=== PATIENT | female | born 1965 | race Caucasian/White ===

== ENCOUNTER 2024-11-10 11:12 | Outpatient (CLI) | payer BC, SELFPAY ==
[2024-11-10 11:27] LABS: Estimated Glomerular Filt Rate > 60
== END 2024-11-10 11:13 | disposition home or self-care (01) ==
PROVIDERS: PCP Family Medicine; Visit Provider Family Medicine
DX: R74.8 Abnormal levels of other serum enzymes (principal); Z90.49 Acquired absence of other specified parts of digestive tract
CPT/HCPCS: 74177; Q9967

== ENCOUNTER 2024-12-01 13:59 | Outpatient (CLI) | payer BC, SELFPAY ==
--- NOTE | ~2024-12-01 | XR_ITS ---
EXAMINATION: XR UGIAC w small bowel DATE: 12/01/2024 16:45 INDICATION: Epigastric pain TECHNIQUE: The patient drank thick barium, gas-producing crystals, and thin barium. Conventional supi ne abdomen radiographs and fluoroscopic spot radiographs of the esophagus, stomach, and proximal smal l bowel were obtained. Additional overhead radiographs were obtained during the transit through the s mall bowel. Spot fluoroscopic images of the small bowel were obtained upon contrast reaching the cec um. Fluoroscopy exposure time was 1.7 minutes. A total of 337 fluoroscopic images and 8 overhead radi ographs were obtained. COMPARISON: CT abdomen pelvis dated 11/10/2024 FINDINGS: The esophagus is normal without mass or stricture. Esophageal motility is normal. There is no hiatal hernia. There was no gastroesophageal reflux with provocative maneuvers. The stomach and proximal sma ll bowel are normal. Transit time from the stomach to proximal colon was approximately 2 hours. There is normal caliber an d mucosal fold pattern throughout the small bowel. Cholecystectomy clips in right upper quadrant. IMPRESSION: 1. Normal upper GI and small bowel follow-through studies. Reviewed, dictated and finalized at location A.
--- OUTSIDE RECORDS SUMMARY | 2024-12-01 14:20 | XMS_ITS ---
Author Organization [facility] Address [address] [place] [address] Care Team Providers Care Rail Washer Name Role Phone Karlee Burton Primary Care Provider [phone] Results Component Value Reference Range Notes CT Abdomen and Pelvis with c ontrast (24190) Reviewed date:11/20/2024 03:32:36 PM Interpretation: Performing Lab: Notes/Report: EBCT Coronary calcium score Reviewed date:11/20/2024 03:33:05 PM Interpretation: Performing Lab: Notes/Report: REASON FOR VISIT ER follow up for chest pains Medications Medication SIG (Take, Route, Frequency, Duration) Notes Start Date End Date Status Wellbutrin XL 300 MG 1 Oral every day; Duration: 0 01/22/2022 Active Benazepril HCl 20 MG 1.5 tablet Orally Once a day; Duration: 90 days Active Wellbutrin XL 150 MG 1 Oral every day; Duration: 0 01/22/2022 Active Pantoprazole Sodium 40 MG 1 tablet 1/2 to 1 hour before morning meal Orally Once a day; Duration: 30 days 10/25/2024 Active Vitamin D3 oral; Duration: 0 *Pick strength-form from [employer] for eRX* 01/22/2022 Not-Taking Nitroglycerin 0.4 MG 1 tablet under the tongue and allow to dissolve as needed. Take every 5 minutes up to 3 times if chest pain persists Sublingual Three times a day Active Vital Signs Temperature 97.1 degrees Fahrenheit 10/25/19 25 Blood pressure systolic 130 mm Hg 10/25/19 25 Blood pressure diastolic 96 mm Hg 025 Heart Rate 68 /min 10/25/2024 Respiratory Rate 18 /min 10/25/2024 Weight 157.4 lbs 10/25/2024 Oximetry 98 % 10/25/2024 Weight-kg 71.4 kg 10/25/2024 Encounters Encounter Location Date Provider Diagnosis [address] [address] 10/25/2024 [facility] Chest pain, unspecif ied type R07.9 ; Essential (primary) hypertension I10 ; Hx of cholecystectomy Z90.49 ; Elevated liver enzymes R74.8 ; Family history of heart disease Z82.49 and Epigastric abdominal pain R10.13 Assessments Encounter Date Diagnosis (ICD Code) Assessment Notes Treat ment Notes Treatment Clinical Notes 10/25/2024 Chest pain, unspecified type (ICD-10 - R07.9) ER paperwork reviewed. Trop negative CXR clear I suggest calling immediately with any changes, keep low fat diet for now. 10/25/2024 Essential (primary) hypertension (ICD-10 - I10) elevated a little today, which is not typical. 10/25/2024 Hx of cholecystectom y (ICD-10 - Z90.49) 10/25/2024 Elevated liver enzymes (ICD-10 - R74.8) 10/25/2024 Family history of heart disease (ICD-10 - Z82.49) 10/25/2024 Epigastric abdominal pain (ICD-10 - R10.13) 10/25/2024 Other Gastrointestinal Pain and Possible Sphincter of Oddi Dysfunction: - Episodes of severe epigastric pain possibly related to sphincter of Oddi dysfunction, especially after consuming fatty foods. Previous gallbladder removal may contribute to symptoms. Elevated liver enzymes noted. Differential diagnosis includes esophageal spasm, hiatal hernia, or functional GI tract issues. - Order a CT scan of the abdomen to assess anatomy. Consider a barium swallow test if CT is unrevealing. Possible MRCP or ERCP if further investigation is needed. Prescribe pantoprazole for acid reflux management. Recommend a low-fat diet. - Consider the use of a medication to thicken bile acids to prevent reflux and spasms if imaging is normal. - Evaluate for potential hiatal hernia or scar tissue from previous surgery as a cause of symptoms. Cardiac Evaluation: - Low suspicion of cardiac origin for symptoms, but family history of cardiac issues warrants evaluation. - Schedule a coronary CT scan to assess for calcium blockage and potential need for a stress test based on results. Plan Of Treatment Medication Medication Name Sig Start Date Stop Date Notes Pantoprazole Sodium 40 MG 1 tablet 1/2 t o 1 hour before morning meal Orally Once a day; Duration: 30 days 10/25/2024 Treatment Notes Assessment Notes Chest pain, unspecified type ER paperwork reviewed. Trop negative CXR clear I suggest calling immediately with any changes, keep low fat diet for now. Essential (primary) hypertension elevate d a little today, which is not typical. Other Gastrointestinal Pain and Possible Sphincter of Oddi Dysfunction: - Episodes of severe epigastric pain possibly related to sphincter of Oddi dysfunction, especially after consuming fatty foods. Previous gallbladder removal may contribute to symptoms. Elevated liver enzymes noted. Differential diagnosis includes esophageal spasm, hiatal hernia, or functional GI tract issues. - Order a CT scan of the abdomen to assess anatomy. Consider a barium swallow test if CT is unrevealing. Possible MRCP or ERCP if further investigation is needed. Prescribe pantoprazole for acid reflux management. Recommend a low-fat diet. - Consider the use of a medication to thicken bile acids to prevent reflux and spasms if imaging is normal. - Evaluate for potential hiatal hernia or scar tissue from previous surgery as a cause of symptoms. Cardiac Evaluation: - Low suspicion of cardiac origin for symptoms, but family history of cardiac issues warrants evaluation. - Schedule a coronary CT scan to assess for calcium blockage and potential need for a stress test based on results. History and Physical Notes * Examination Category Sub-Category Detail Notes General Examination General appearance: alert, p leasant, well-nourished and in no acute distress Head: normocephalic, atrau matic Eyes: both eyes, extraocul ar movement intact (EOMI), pupils equal, round, reactive to light and accommodation, conjunctiva clear Ears: both ears, normal, a uditory canal clear, tympanic membranes normal Nose: nares patent, no les ions Throat: clear, no erythema, no exudate, pharynx normal Neck / thyroid: neck is supple with no cervical lymphadenopathy, trachea midline Heart: regular rate and rhy thm without murmurs, gallops, clicks or rubs, S1 and S2 are normal and no S3 and S4 gallop Lungs: clear to auscultatio n bilaterally, with good air movement and no rales, rhonchi or wheezes Abdomen: soft with good bowel sounds, nontender, and no masses or hepatosplenomegaly Neurologic: alert and oriented, deep tendon reflexes 2+ symmetrical, gait normal Skin: skin is warm and dry , with no rashes, good skin turgor and normal hair distribution Extremities: normal extremity wit h no clubbing, cyanosis or edema Peripheral pulses: 2+ dorsalis pedis, 2 + posterior tibial, 2+ radial, 2+ carotid Back: normal, without kyph oscoliosis or tenderness Musculoskeletal: Normal bulk and tone in extremities Lymph nodes: no cervical lymphade nopathy Psych: alert and oriented x 3, cognitive function intact, maintains good eye contact, normal affect / mood, speech is clear and coherent Oral cavity: normal, mucosa moist , tongue is midline, Lips benign Progress Notes * Chantel ASHLEYOB:1965 ( 59 yo F)Acc No.[id number]:10/25/2024 Patient: Chase Aggarwal Provider: Ronen Burton MD :1965 A ge:59 Y S ex:Female Date:10/25/2024 Phone: Address[facility] Subjective: * Chief Complaints: * E R follow up for chest pains * HPI: C hest pain: Pt presents today for an ER f/u for chest pain. Pt was seen at [facility] on 10/18/24. She described the pain as being midsternal chest pains that were lasting several hours. Pt denies nausea, jaw or arm pain, and no SOB. Pt was given an xray of the chest. Thay xray was negative. Pt was diagnosed with esophageal spasm and gastro reflux. Pt had another episode wednesday evening that lasted about 30 minutes, not as severe as previous ones. 6/10 on pain scale. Pt has also noticed after she eats her chest feels funny. Pt has not been taking the 3 medications that were prescribed. Pt took one nitroglycerin Wednesday, said it did not help. - Balbir experienced severe gastric pain described as burning and squeezing, leading to dizziness and lightheadedness, prompting a visit to the ED. - Episodes similar to GERD have occurred before, but not treated consistently. - Recent episode included numbness and tingling in hands, which was new. - Pain onset after consuming coffee and a peanut butter [employer] bar. - History of EGD and cholecystectomy. - Liver enzymes were elevated in recent labs before the ED visit. - Relief sometimes achieved by self-induced vomiting or physical pressure on the abdomen. - Another episode occurred on Wednesday after eating chocolate, lasting about 30 minutes. - No consistent trigger identified; episodes can occur after consuming fatty foods like chocolate or peanut butter. - Previous scope on December 02, 2018, showed normal upper GI tract and normal colonoscopy with two small sigmoid polyps. * Medical History: Vitamin D deficiency, unspecified Vitamin D deficiency, unspecified Hyperlipidemia, unspecified Major depressive disorder, single episode, unspecified Essential (primary) hypertension Constipation, unspecified Asymptomatic menopausal state * Surgical History: abdominoplasty Cholecystectomy 10/12/2017 delivery 02/17/2016 * Medications: T akingNitroglycerin 0.4 MG Tablet Sublingual 1 tablet under the tongue and allow to dissolve as needed. Take every 5 minutes up to 3 times if chest pain persists Sublingual Three times a day Wellbutrin XL 150 MG Tablet Extended Release 24 Hour 1 Oral every day Wellbutrin XL 300 MG Tablet Extended Release 24 Hour 1 Oral every day Benazepril HCl 20 MG Tablet 1.5 tablet Orally Once a day Taking Nitroglycerin 0.4 MG Tablet Sublingual 1 tablet under the tongue and allow to dissolve as needed. Take every 5 minutes up to 3 times if chest pain persists Sublingual Three times a day Taking Wellbutrin XL 150 MG Tablet Extended Release 24 Hour 1 Oral every day Taking Wellbutrin XL 300 MG Tablet Extended Release 24 Hour 1 Oral every day Taking Benazepril HCl 20 MG Tablet 1.5 tablet Orally Once a day Not-TakingVitamin D3 oral , Notes to Pharmacist: *Pick strength-form from [employer] for eRX*Not-Taking Vitamin D3 oral , Notes to Pharmacist: *Pick strength-form from [employer] for eRX*DiscontinuedOmeprazole 40 MG Capsule Delayed Release 1 capsule 1/2 to 1 hour before morning meal Orally Once a day Medication List reviewed and reconciled with the patientDiscontinued Omeprazole 40 MG Capsule Delayed Release 1 capsule 1/2 to 1 hour before morning meal Orally Once a day Medication List reviewed and reconciled with the patient * Allergies: y esAllergies Verified. Objective: * Vitals: B P:130/96mm Hg, HR:68/min, RR:18/min, Temp:97.1F, Oxygen sat %:98%, Wt:157.4lbs, Wt-k.4 kg. * Examination: G eneral Examination: General appearance: a lert, pleasant, well-nourished and in no acute distress. Head: n ormocephalic, atraumatic. Eyes: b oth eyes, extraocular movement intact (EOMI), pupils equal, round, reactive to light and accommodation, conjunctiva clear. Ears: b oth ears, normal, auditory canal clear, tympanic membranes normal. Nose: n roselia patent, no lesions. Oral cavity: n ormal, mucosa moist, tongue is midline, Lips benign. Throat: c lear, no erythema, no exudate, pharynx normal.? Neck / thyroid: n james is supple with no cervical lymphadenopathy, trachea midline. Lymph nodes: n o cervical lymphadenopathy. Skin: s kin is warm and dry, with no rashes, good skin turgor and normal hair distribution. Heart: r egular rate and rhythm without murmurs, gallops, clicks or rubs, S1 and S2 are normal and no S3 and S4 gallop. Lungs: c lear to auscultation bilaterally, with good air movement and no rales, rhonchi or wheezes. Abdomen: s oft with good bowel sounds, nontender, and no masses or hepatosplenomegaly. Back: n ormal, without kyphoscoliosis or tenderness. Musculoskeletal: N ormal bulk and tone in extremities. Extremities: n ormal extremity with no clubbing, cyanosis or edema. Peripheral pulses: 2 + dorsalis pedis, 2+ posterior tibial, 2+ radial, 2+ carotid. Neurologic: a lert and oriented, deep tendon reflexes 2+ symmetrical, gait normal. Psych: a lert and oriented x 3, cognitive function intact, maintains good eye contact, normal affect / mood, speech is clear and coherent. ? Assessment: * Assessment: 1. C hest pain, unspecified type - R07.9 (Primary) 2 . E ssential (primary) hypertension - I10 3 . H x of cholecystectomy - Z90.49 4 . E levated liver enzymes - R74.8 5 . F amily history of heart disease - Z82.49 6. E pigastric abdominal pain - R10.13 Plan: * Treatment: * ?Imaging: EBCT Coronary calcium score* Karlee Burton 10/27/2024 0 6:32:44 AM [facility]ATH[facility] SORTER >Jeff of coronary calcium score * Notes: ER paperwork reviewed. Trop negative CXR clear I suggest calling immediately with any changes, keep low fat diet for now. ??2.?Essential (primary) hypertension? Notes: elevated a little today, which is not typical.??3.?Hx of cholecystectomy?Imaging: CT Abdomen and Pelvis with contrast ([id number])* Karlee Burton 10/27/2024 0 6:34:09 AM [facility] LEATHER SORTER >[facility] (within next week) * 4.?Elevated liver enzymes?Imaging: CT Abdomen and Pelvis with contrast ([id number])* Karlee Burton 10/27/2024 0 6:34:09 AM [facility] SORTER >[facility] (within next week) * 5.?Family history of heart disease?Imaging: EBCT Coronary calcium score* Karlee Burton 10/27/2024 0 6:32:44 AM [facility] >Jeff of coronary calcium score * 6.?Epigastric abdominal pain?Imaging: CT Abdomen and Pelvis with contrast ([id number])* Karlee Burton 10/27/2024 0 6:34:09 AM [facility] SORTER >[facility] (within next week) * 7.?Others? Start Pantoprazole Sodium Tablet Delayed Release, 40 MG, 1 tablet 1/2 to 1 hour before morning meal, Orally, Once a day, 30 days, 30, Refills 1.?? Notes: Gastrointestinal Pain and Possible Sphincter of Oddi Dysfunction: - Episodes of severe epigastric pain possibly related to sphincter of Oddi dysfunction, especially after consuming fatty foods. Previous gallbladder removal may contribute to symptoms. Elevated liverenzymes noted. Differential diagnosis includes esophageal spasm, hiatal hernia, or functional GI tract issues. - Order a CT scan of the abdomen to assess anatomy. Consider a barium swallow test if CT is unrevealing. Possible MRCP or ERCP if further investigation is needed. Prescribe pantoprazole for acid reflux management. Recommend a low-fat diet. - Consider the use of a medication to thicken bile acids to prevent reflux and spasms if imaging isnormal. - Evaluate for potential hiatal hernia or scar tissue from previous surgery as a cause of symptoms. Cardiac Evaluation: - Low suspicion of cardiac origin for symptoms, but family history of cardiac issues warrants evaluation. - Schedule a coronary CT scan to assess for calcium blockage and potential need for a stress test based on results.?? Billing Information: * Visit Code: [id number] OFFICE VISIT MODERATE. * Procedure Codes: * LEATHER SORTER Sign off status: Completed true * Provider: Ronen Burton MD Date: 0 10/25/2024 Generated for Jose an/Celso/Kaushalransmitting on: 0 12/01/2024 02:20 PM CDT
--- OUTSIDE RECORDS SUMMARY | 2024-12-01 14:20 | XMS_ITS ---
Author Organization [facility] Address [address] [place] [address] Care Team Providers Care Sprayer Hand Name Role Phone Karlee Burton Primary Care Provider [phone] Basilio Waldropher Unavailable [phone] Allergies No Known Allergies Reason For Referral Reason Screening colonoscop y and EGD for epigasgtric pain- Refer to Dr. Montez Diagnosis 1 Epigastric pain (R10 .13) Diagnosis 2 Gastro-esophageal re flux disease without esophagitis (K21.9) Diagnosis 3 Encounter for screen ing colonoscopy (Z12.11) Referral Organization [facility] Referring Provider First Name Sheldon Referring Provider Last Name Benjie Referring Provider Speciality Nurse Prac titioner Referred Provider Specialty Gastroentero logy General Notes Nuria Siu 0 11/24/2024 03:40:30 PM CDT >Referral faxed to Dr. Montez [phone] Referral Priority Routine REASON FOR VISIT med check, Pending UGI with small bowel follow through Medications Medication SIG (Take, Route, Frequency, Duration) Notes Start Date End Date Status Nitroglycerin 0.4 MG 1 tablet under the tongue and allow to dissolve as needed. Take every 5 minutes up to 3 times if chest pain persists Sublingual Three times a day Active Wellbutrin XL 150 MG 1 Oral every day; Duration: 0 01/22/2022 Active Wellbutrin XL 300 MG 1 Oral every day; Duration: 0 01/22/2022 Active Benazepril HCl 20 MG 1.5 tablet Orally O nce a day; Duration: 90 days Active Pantoprazole Sodium 40 MG 1 tablet 1/2 t o 1 hour before morning meal Orally Once a day; Duration: 30 days 10/25/2024 Active Immunizations Vaccine Route Administration Date Status Comme nts Shingrix IM Intramuscular 11/21/2024 Administered Vital Signs Temperature 97.3 degrees Fahrenheit 11/22/19 25 Blood pressure systolic 142 mm Hg 11/22/19 25 Blood pressure diastolic 90 mm Hg 025 Heart Rate 88 /min 11/21/2024 Respiratory Rate 18 /min 11/21/2024 Weight 157.4 lbs 11/21/2024 Oximetry 98 % 11/21/2024 Weight-kg 71.4 kg 11/21/2024 Encounters Encounter Location Date Provider Diagnosis [address] [address] 11/21/2024 Sheldon Waldrop Epigastric pain R10.13 ; Well adult exam Z00.00 ; Essential (primary) hypertension I10 ; Elevated liver enzymes R74.8 ; Encounter for immunization Z23 ; Hyperlipidemia, unspecified E78.5 ; Encounter for screening colonoscopy Z12.11 and Major depressive disorder, single episode, unspecified F32.9 Assessments Encounter Date Diagnosis (ICD Code) Assessment Notes Treatment Notes Treatment Clinical Notes 11/21/2024 Epigastric pain (ICD-10 - R10.13) -Ongoing pain in epigatric region, she is going to have an UGI next week. She is due for EGD and colonoscopy. Will refer to Dr. Montez 11/21/2024 Well adult exam (ICD-10 - Z00.00) -Routine well adult. Reviewed labwork -Due for a mammogram. Last colonoscopy was in 2019.- Schedule mammogram. Discussed Shingles shot 11/21/2024 Essential (primary) hypertension (ICD-10 - I10) -BP has been elevated the last 3 visits. Will increase benzapril medication to 40mg 11/21/2024 Elevated liver enzymes (ICD-10 - R74.8) - Liver enzymes were OK about 4 weeks ago 11/21/2024 Encounter for immunization (ICD-10 - Z23) -Started Shingrix series today 11/21/2024 Hyperlipidemia, unspecified (ICD-10 - E78.5) -LDL is elevated, but TC/HDL ratio is 3. Will continue to monitor 11/21/2024 Encounter for screening colonoscopy (ICD-10 - Z12.11) -6 years since last colonoscopy. Will refer to Dr. Montez for colongoopy and EGD 11/21/2024 Major depressive disorder, single episode, unspecified (ICD-10 - F32.9) -Welbutrin [id number]. She feels it is working well for the most part Plan Of Treatment Treatment Notes Assessment Notes Epigastric pain -Ongoing pain in epi gatric region, she is going to have an UGI next week. She is due for EGD and colonoscopy. Will refer to Dr. Montez Well adult exam -Routine well adult. Reviewed labwork -Due for a mammogram. Last colonoscopy was in 2019.- Schedule mammogram. Discussed Shingles shot Essential (primary) hypertension -BP has been elevated the last 3 visits. Will increase benzapril medication to 40mg Elevated liver enzymes - Liver enzymes w ere OK about 4 weeks ago Encounter for immunization -Started Sidhu grix series today Hyperlipidemia, unspecified -LDL is elev ated, but TC/HDL ratio is 3. Will continue to monitor Encounter for screening colonoscopy -6 y ears since last colonoscopy. Will refer to Dr. Montez for colongoopy and EGD Major depressive disorder, s jo episode, unspecified -Welbutrin [id number]. She feels it is working well for the most part Referrals Referral Date Details 11/21/2024 11/21/2024, Screenin g colonoscopy and EGD for epigasgtric pain- Refer to Dr. Montez History and Physical Notes * Examination Category Sub-Category Detail Notes General Examination General appearance: alert, p leasant, well-nourished and in no acute distress Head: normocephalic, atrau matic Eyes: extraocular movement intact (EOMI), pupils equal, round, reactive to light and accommodation Ears: both ears, normal Nose: nares patent, no les ions [...] wit h no clubbing, cyanosis or edema Musculoskeletal: Normal bulk and tone in extremities Lymph nodes: no cervical lymphade nopathy Psych: alert and oriented x 3, cognitive function intact, maintains good eye contact, normal affect / mood, speech is clear and coherent Oral cavity: normal, mucosa moist , tongue is midline Consultation Request Notes Referral Date Referring Provider Referred Provider Not es 11/21/2024 Sheldon Waldrop Screening c olonoscopy and EGD for epigasgtric pain- Refer to Dr. Montez Progress Notes * Chantel ASHLEYOB:1965 ( 59 yo F)Acc No.[id number]:11/21/2024 Patient: Chase Aggarwal Provider: Danuta Waldrop NP :1965 A ge:59 Y S ex:Female Date:11/21/2024 Phone: Address:[facility] [place] [facility] Pcp:Karlee Burton Subjective: * Chief Complaints: * M ed checkPending UGI with small bowel follow through * HPI: D epression: Wellbutrin 450mg daily, managed by INTERIOR SURFACE INSULATION WORKER. H ypertension: Taking benazepril 30mg daily. C hest pain: Recent ER visits for chest pain. Has been seen by Dr. Burton since. CT abdomen/pelvis negative. Cardiac scoring done and negative. Pending UGI with small bowel follow through. Started on protonix. Rec low fat diet. H PI: Balbir Ashley reported having an episode of chest pain that led to an ER visit. She is currently taking Protonix for reflux and has an upper GI procedure scheduled. She mentioned having undergone a CAT scan and a heart scan. Balbir experiences episodes of discomfort, with the last two occurring on consecutive Mondays, one lasting an hour and 40 minutes. During these episodes, she feels pain in the upper right abdomen, described as a twisting sensation. The sphincter of Oddi has been mentioned as a possible issue. Balbir is making dietary adjustments by avoiding chocolate, fried foods, and fatty foods. She takes pantoprazole as needed, along with Wellbutrin and Benzapril. She reports feeling generally good energy-walton and has not been sick since August. Her appetite is good, and she is mindful of her diet due to stomach issues. She denies having night sweats, vision changes, hearing concerns, sinus issues, heat or cold intolerance, cardiac worries, irregular heartbeats, palpitations, swelling, cough, wheezing, shortness of breath, bowel changes, urinary concerns, or skin worries. Balbir has resumed walking, covering about 4 miles a day, and engages in physical activities like pickleball. Her sleep is generally good, waking up once or twice a night but able to return to sleep easily. Her weight has remained consistent, though she notes a slight increase around [place]. She received a letter indicating she is due for a mammogram and continues to see gynecology. Her last colonoscopy and endoscope were last done in 2019. She has not received a shingles shot yet, and would be interested in do that. * ROS: G eneral / Constitutional: Patient denies c hange in appetite, fever, weakness. P atient complains of f ever, headache. F ever D enies. A llergy / Immunology: Patient denies h jennifer, itching, rash. O phthalmologic: Patient denies b lurry vision, discharge, red eye(s). P atient complains of d ouble vision. E ndocrine: Patient denies c old intolerance, hair loss. ? R espiratory: Patient denies c hronic cough, shortness of breath, sputum production. C ardiovascular: Patient denies c hest pain, chest pain with exertion, irregular heartbeat. G astrointestinal: Patient denies C onstipation , diarrhea, rectal bleeding. P atient complains of R ecurring pain in epigastric region, she feels like it is a twising sensation. H ematology: Patient denies e asy bleeding, easy bruising, recent transfusion. G enitourinary: Patient denies a bdominal pain / swelling, blood in the urine, frequent urination. M usculoskeletal: Patient denies a rthritis / arthralgia, joint stiffness, swollen joints. P eripheral Vascular: Patient denies b lanching of skin, cold extremities, decreased sensation in extremities. S kin: Patient denies b listering of skin, changing moles, skin lesion(s). N eurologic: Patient denies d izziness, gait abnormality, headache. P sychiatric: Patient denies d elusions, depressed mood, difficulty sleeping. * Medical History: Vitamin D deficiency, unspecified [...] Tablet 1.5 tablet Orally Once a day Pantoprazole Sodium 40 MG Tablet Delayed Release 1 tablet 1/2 to 1 hour before morning meal Orally Once a day Taking Nitroglycerin 0.4 [...] 1.5 tablet Orally Once a day Taking Pantoprazole Sodium 40 MG Tablet Delayed Release 1 tablet 1/2 to 1 hour before morning meal Orally Once a day DiscontinuedVitamin D3 oral , Notes to Pharmacist: *Pick strength-form from [employer] for eRX*Discontinued Vitamin D3 oral , Notes to Pharmacist: *Pick strength-form from [employer] for eRX* * Allergies: N .K.D.ADelmyyesAllergies Verified. Objective: * Vitals: B P:142/90mm Hg, HR:88/min, RR:18/min, Temp:97.3F, Oxygen sat %:98%, Wt:157.4lbs, Wt-k.4 kg. * Examination: G eneral Examination: General appearance: a lert, pleasant, well-nourished and in no acute distress. Head: n ormocephalic, atraumatic. Eyes: e xtraocular movement intact (EOMI), pupils equal, round, reactive to light and accommodation. Ears: b oth ears, normal. Nose: n roselia patent, no lesions. Oral cavity: n ormal, mucosa moist, tongue is midline. Throat: c lear, no erythema, no exudate, [...] sounds, nontender, and no masses or hepatosplenomegaly. Musculoskeletal: N ormal bulk and tone in extremities. Extremities: n ormal extremity with no clubbing, cyanosis or edema. Neurologic: a lert and oriented, deep tendon reflexes 2+ symmetrical, gait normal. Psych: a lert and oriented x 3, cognitive function intact, maintains good eye contact, normal affect / mood, speech is clear and coherent. ? Assessment: * Assessment: 1. W ell adult exam - Z00.00 (Primary) 2 . E pigastric pain - R10.13 ? 3 . E ssential (primary) hypertension - I10 4 . E levated liver enzymes - R74.8 5 . E ncounter for immunization - Z23 6 . H yperlipidemia, unspecified - E78.5 7 . E ncounter for screening colonoscopy - Z12.11 8 . M ajor depressive disorder, single episode, unspecified - F32.9 ? S pecify :Src Problem: (F32.9 - ) Major depressive disorder, single episode, unspecified e Plan: * Treatment: 2. E pigastric pain Notes: -Ongoing pain in epigatric region, she is going to have an UGI next week. She is due for EGD and colonoscopy. Will refer to Dr. Montez ? Referral To:Gastroenterology Reason:Screening colonoscopy and EGD for epigasgtric pain- Refer to Dr. Montez 3. E ssential (primary) hypertension Notes: -BP has been elevated the last 3 visits. Will increase benzapril medication to 40mg ? 4. E levated liver enzymes Notes: - Liver enzymes were OK about 4 weeks ago 5. E ncounter for immunization Notes: -Started Shingrix series today 6. H yperlipidemia, unspecified Notes: -LDL is elevated, but TC/HDL ratio is 3. Will continue to monitor 7. E ncounter for screening colonoscopy Notes: -6 years since last colonoscopy. Will refer to Dr. Montez for colongoopy and EGD ? Referral To:Gastroenterology Reason:Screening colonoscopy and EGD for epigasgtric pain- Refer to Dr. Montez 8. M ajor depressive disorder, single episode, unspecified Notes: -Welbutrin [id number]. She feels it is working well for the most part 9. O thers Referral To:Gastroenterology Reason:Screening colonoscopy and EGD for epigasgtric pain- Refer to Dr. Montez * Immunizations: Shingrix : 0.5 mL (Dose No:1) (Route: Intramuscular) given by Hari Parkinson on Left Arm Billing Information: * Visit Code: 52557 PREV VISIT EST AGE 40-64. * Procedure Codes: * Sign off status: Completed true * Provider: Danuta Waldrop NP Date: 0 11/21/2024 Generated for Jose an/Celso/Seferinoitting on: 0 12/01/2024 02:20 PM CDT
--- OUTSIDE RECORDS SUMMARY | 2024-12-01 14:20 | XMS_ITS ---
Author Organization [facility] d[facility] Address [address] [place] [address] Care Team Providers Care Dye Stand Loader Name Role Phone Karlee Burton Primary Care Provider [phone] REASON FOR VISIT UGI Encounters Encounter Location Date Provider Diagnosis [facility] [address] [place] [address] 11/13/2024 Karlee Burton Epigastric pain R10.13 Assessments Encounter Date Diagnosis (ICD Code) Assessment Notes Treatment Notes Treatment Clinical Notes 11/13/2024 Epigastric pain (ICD-10 - R10.13) Plan Of Treatment Pending Test Test Name Order Date Upper gastrointestinal (UGI) series with Small bowel follow through 11/13/2024 Progress Notes * Chantel ASHLEYOB:1965 ( 59 yo F)Acc No.[id number]:11/13/2024 Patient: Chase NOEL :1965 A ge:59 Y S ex:Female Phone: Address:[place], [address] Subjective: * Chief Complaints: * U GI * Medical History: * Surgical History: * Hospitalization/Major Diagno stic Procedure: * Medications: Objective: * Physical Examination: Assessment: * Assessment: 1. E pigastric pain - R10.13 Plan: * Treatment: * * Procedure Codes: Billing Information: * Visit Code: * Procedure Codes: * true * Date: Generated for Printi ng/Faxing/eTransmitting on: 0 12/01/2024 02:19 PM CDT
--- OUTSIDE RECORDS SUMMARY | 2024-12-01 14:20 | XMS_ITS | Patient Health Record ---
Author Organization [facility] dicine Address [address] [place] [address] Care Team Providers Care Mail Officer Name Role Phone Karlee Burton Primary Care Provider [phone] Junie Waldrop Unavailable [phone] Migration, Provider Unavailable Unavailable Allergies No Known Allergies Results Component Value Reference Range Notes EBCT Coronary calcium score Reviewed date:11/20/2024 03:33:05 PM Interpretation: Performing Lab: Notes/Report: CT Abdomen and Pelvis with c ontrast ([id number]) Reviewed date:11/20/2024 03:32:36 PM Interpretation: Performing Lab: Notes/Report: MAMMOGRAM, SCREENING Reviewed date:10/18/2024 09:17:43 AM Interpretation: Performing Lab: Notes/Report: Mammogram normal, birads 1 Reason For Referral Reason Screening colonoscop y and EGD for epigasgtric pain- Refer to Dr. Montez Diagnosis 1 Epigastric pain (R10 .13) Diagnosis 2 Gastro-esophageal re flux disease without esophagitis (K21.9) Diagnosis 3 Encounter for screen ing colonoscopy (Z12.11) Referral Organization [facility] Referring Provider First Name Junie Referring Provider Last Name Benjie Referring Provider Speciality Nurse Prac titioner Referred Provider Specialty Gastroentero logy General Notes Nuria Siu 0 11/24/2024 03:40:30 PM CDT >Referral faxed to Dr. Montez [phone] Referral Priority Routine Medications Medication SIG (Take, Route, Frequency, Duration) [...] Vaccine Route Administration Date Status Comme nts Tdap IM Intramuscular 07/07/2019 Administered Source VFC Code: : Shingrix IM Intramuscular 11/21/2024 Administered Pfizer-Biontech Covid-19 Vaccine 1st dose IM Intramuscular 08/10/2021 Administered Source VFC Code: : Pfizer-Biontech Covid-19 Vaccine 1st dose IM Intramuscular 07/25/2022 Administered Source VFC Code: : Pfizer-Biontech Covid-19 Vaccine 1st dose IM Intramuscular 06/20/2024 Administered ,sourcename : N ew immunization record ,immstatus : Complete Moderna Covid-19 Vaccine 1st dose Unknown 11/16/2020 Administered Source VFC Code: : Moderna Covid-19 Vaccine 1st dose Unknown 12/16/2020 Administered Source VFC Code: : Influenza, seasonal, injectable, preservative free, 3 yrs and above IM Intramuscular 06/20/2024 Administered ,sourcename : N ew immunization record ,immstatus : Complete Influenza, quadrivalent (IIV4), split virus, 6-35 months dosage IM Intramuscular 08/03/2015 Administered Source VFC Code: : Influenza, quadrivalent (IIV4), split virus, 6-35 months dosage IM Intramuscular 06/27/2016 Administered Source VFC Code: : Influenza, quadrivalent (IIV4), split virus, 6-35 months dosage IM Intramuscular 06/27/2017 Administered Source VFC Code: : Influenza, quadrivalent (IIV4), split virus, 6-35 months dosage IM Intramuscular 06/18/2018 Administered Source VFC Code: : Influenza, quadrivalent (IIV4), split virus, 6-35 months dosage IM Intramuscular 07/07/2019 Administered Source VFC Code: : Influenza, quadrivalent (IIV4), split virus, 6-35 months dosage IM Intramuscular 06/02/2020 Administered Source VFC Code: : Influenza, quadrivalent (IIV4), split virus, 6-35 months dosage IM Intramuscular 06/22/2021 Administered Source VFC Code: : Influenza, quadrivalent (IIV4), split virus, 6-35 months dosage IM Intramuscular 06/22/2023 Administered Source VFC Code: : Influenza, MDCK, quadrivalent, PF IM Intramuscular 06/20/2022 Administered Source VFC Code: : Problems Problem Type SNOMED Code ICD Code Onset Dates Problem Status W/U Status Risk Notes Problem Acute cystitis (12942775) Acute cystitis (595.0) 02/13/20 17 Problem resolved confirmed Problem Screening for cancer (84348595) Special screening for malignant neoplasms, other sites (V76.49) 10/22/19 19 Problem resolved confirmed Problem Vitamin D deficiency (21788336) Vitamin D deficiency, unspecified (E55.9) 10/11/19 24 Active confirmed Problem Mixed hyperlipidemia (609306934) Mixed hyperlipidemia (E78.2) 02/17/20 16 Problem resolved confirmed Problem Hyperlipidemia (57111947) Hyperlipidemia, unspecified (E78.5) 10/11/19 24 Active confirmed Problem Major depression, single episode (76908394) Major depressive disorder, single episode, unspecified (F32.9) 02/17/20 16 Active confirmed Problem Generalized anxiety disorder (85773402) Generalized anxiety disorder (F41.1) 10/22/19 19 Problem resolved confirmed Problem Essential hypertension (98360138) Essential (primary) hypertension (I10) 07/15/20 22 Active confirmed Problem Gastro-esophageal reflux disease without esophagitis (422000206) Gastro-esophageal reflux disease without esophagitis (K21.9) 10/22/19 19 Problem resolved confirmed Problem Constipation (40610385) Constipation, unspecified (K59.00) 07/15/20 22 Active confirmed Problem Acute cystitis (70567382) Acute cystitis without hematuria (N30.00) 02/13/20 17 Problem resolved confirmed Problem Urinary tract infectious disease (disorder) (56361047) Urinary tract infection, site not specified (N39.0) 01/23/20 22 Problem resolved confirmed Problem Epigastric pain (58117006) Epigastric pain (R10.13) 11/02/19 17 Problem resolved confirmed Problem Generalized abdominal pain (006340999) Generalized abdominal pain (R10.84) 07/15/20 22 Problem resolved confirmed Problem Postmenopausal state (08957659) Asymptomatic menopausal state (Z78.0) 07/15/20 22 Active confirmed Vital Signs Heart Rate 88 /min 11/21/2024 Temperature 97.3 degrees Fahrenheit 11/21/2024 Respiratory Rate 18 /min 11/21/2024 Blood pressure diastolic 90 mm Hg 11/21/2024 Oximetry 98 % 11/21/2024 Weight-kg 71.4 kg 11/21/2024 Blood pressure systolic 142 mm Hg 11/21/2024 Weight 157.4 lbs 11/21/2024 Procedures Procedure Date Ordered Date Performed Result Body Sit e ESOPHAGOGASTRODUODENOSCOPY 10/18/2024 12/02/2018 Normal Colonoscopy 10/18/2024 12/02/2018 N/A Encounters Encounter Location Date Provider Diagnosis [address] [address] 06/20/2024 [facility] Encounter for immunization Z23 [address] [address] 09/08/2024 Junie Walrdop Acute cough R05.[address] [address] 10/18/[address] [address] 10/25/2024 [facility] Chest pain, unspecif ied type R07.9 ; Essential (primary) hypertension I10 ; Hx of cholecystectomy Z90.49 ; Elevated liver enzymes R74.8 ; Family history of heart disease Z82.49 and Epigastric abdominal pain R10.[address] [address] 11/21/2024 Junie Beckert Epigastric pain R10. 13 ; Well adult exam Z00.00 ; Essential (primary) hypertension I10 ; Elevated liver enzymes R74.8 ; Encounter for immunization Z23 ; Hyperlipidemia, unspecified E78.5 ; Encounter for screening colonoscopy Z12.11 and Major depressive disorder, single episode, unspecified F32.[address] [address] 08/12/[address] [facility] [address] [place] [address] 08/13/2024 Provider Migration [facility] [address] [place] [address] 10/16/2024 [facility] Vitamin D deficiency , unspecified E55.9 ; Hyperlipidemia, unspecified E78.5 ; Essential (primary) hypertension I10 and Encounter for general adult medical examination without abnormal findings Z00.00 [facility] [address] [place] [address] 11/13/2024 [facility] Epigastric pain R10. 13 Assessments Encounter Date Diagnosis (ICD Code) Assessment Notes Treat ment Notes Treatment Clinical Notes 10/16/2024 Vitamin D deficiency , unspecified (ICD-10 - E55.9) 10/16/2024 Hyperlipidemia, unspecified (ICD-10 - E78.5) 10/25/2024 Essential (primary) hypertension (ICD-10 - I10) elevated a little today, which is not typical. 10/25/2024 Chest pain, unspecified type (ICD-10 - R07.9) ER paperwork reviewed. Trop negative CXR clear I suggest calling immediately with any changes, keep low fat diet for now. 11/13/2024 Epigastric pain (ICD-10 - R10.13) 11/21/2024 Epigastric pain (ICD-10 - R10.13) -Ongoing pain in epigatric region, she is going to have an UGI next week. She is due for EGD and colonoscopy. Will refer to Dr. Montez 11/21/2024 Well adult exam (ICD-10 - Z00.00) -Routine well adult. Reviewed labwork -Due for a mammogram. Last colonoscopy was in 2019.- Schedule mammogram. Discussed Shingles shot 06/20/2024 Encounter for immunization (ICD-10 - Z23) 09/08/2024 Acute cough (ICD-10 - R05.1) Been coughig for about 2 weeks. Lungs are overall clear. Will treat cough with Zpak. Recommend Mucinex. Call if no improvement in 5-7 days 10/25/2024 Hx of cholecystectom y (ICD-10 - Z90.49) 10/16/2024 Essential (primary) hypertension (ICD-10 - I10) 11/21/2024 Essential (primary) hypertension (ICD-10 - I10) -BP has been elevated the last 3 visits. Will increase benzapril medication to 40mg 10/16/2024 Encounter for genera l adult medical examination without abnormal findings (ICD-10 - Z00.00) 10/25/2024 Elevated liver enzymes (ICD-10 - R74.8) 11/21/2024 Elevated liver enzymes (ICD-10 - R74.8) - Liver enzymes were OK about 4 weeks ago 11/21/2024 Encounter for immunization (ICD-10 - Z23) -Started Shingrix series today 10/25/2024 Family history of heart disease (ICD-10 - Z82.49) 11/21/2024 Hyperlipidemia, unspecified (ICD-10 - E78.5) -LDL is elevated, but TC/HDL ratio is 3. Will continue to monitor 11/21/2024 Encounter for screening colonoscopy (ICD-10 - Z12.11) -6 years since last colonoscopy. Will refer to Dr. Montez for colongoopy and EGD 10/25/2024 Epigastric abdominal pain (ICD-10 - R10.13) 11/21/2024 Major depressive disorder, single episode, unspecified (ICD-10 - F32.9) -Welbutrin [id number]. She feels it is working well for the most part 10/25/2024 Other Gastrointestinal Pain and Possible Sphincter [...] test based on results. Plan Of Treatment Pending Test Test Name Order Date Thyroxine (T4) 10/16/2024 TSH 10/16/2024 CBC With Differential/Platelet Vitamin D, 25-Hydroxy 10/16/2024 Lipid Panel 10/16/2024 Comp. Metabolic Panel (14) 10/16/2024 Upper gastrointestinal (UGI) series with Small bowel follow through 11/13/2024 Insurance Providers Payer Name Payer Address Payer Phone Subscriber Number Group Number Insured Name Patient Relationship to Insured Coverage Start Date Coverage End Date [employer] [address] [place] [address] [id number] Chase Rodgers Self - patient is the insured 3 Medical (General) History Medical History History ICD Code Vitamin D deficiency, unspecified Vitamin D deficiency, unspecified E55.9 Hyperlipidemia, unspecified E78.5 Major depressive disorder, single episod e, unspecified F32.9 Essential (primary) hypertension I10 Constipation, unspecified K59.00 Asymptomatic menopausal state Z78.0 Surgical History Surgery Date(Month/Year) abdominoplasty Cholecystectomy 10/12/2017 delivery 02/17/2016
== END 2024-12-01 14:00 | disposition home or self-care (01) ==
PROVIDERS: PCP Family Medicine; Visit Provider Family Medicine
DX: R10.13 Epigastric pain (principal)
CPT/HCPCS: 74246; 74248